=== PATIENT | female | born 1995 | race Two or more races ===

== ENCOUNTER 2019-11-24 10:18 | Inpatient (IN) | payer OTHER ==
[~2019-11-24] VITALS: Ht 157.5 cm; Wt 68.9 kg
[2019-11-24] MEDS ORDERED: FOLIC ACID20 MG PO (10:46)
[2019-11-24] MEDS ORDERED: PRENATAL CAPLE1 EAC1 PO (10:46)
== END 2019-11-26 14:38 | disposition home or self-care (01) | DRG 788 ==
LOC: LDR 10:18 → O/R 10:18 → OB/GYN 16:05
PROVIDERS: ADMIT Obstetrics & Gynecology
PROC: 4A1HXCZ Monitoring of Products of Conception, Cardiac Rate, External Approach (ICD-10-PCS; 2019-11-24)
PROC: 10D00Z1 Extraction of Products of Conception, Low, Open Approach (ICD-10-PCS; principal; 2019-11-24 12:00)
DX: O82 Encounter for cesarean delivery without indication (principal); Z3A.38 38 weeks gestation of pregnancy; Z37.0 Single live birth